=== PATIENT | male | born 1945 | race Caucasian/White ===

== ENCOUNTER 2018-08-24 14:24 | Day surgery (SDC) | payer MEDICARE, OTHER ==
[~2018-08-24] VITALS: Ht 182.9 cm; Wt 89.7 kg
[2018-08-24] MEDS ORDERED: ULTRAM 50MG TAB50 MG PO (15:16)
[2018-08-24] MEDS ORDERED: PRINIVIL20 MG PO (15:19)
[2018-08-24] MEDS ORDERED: ZOCOR 40MG40 MG PO (15:20)
[2018-08-24 15:21] VITALS: BP 135/75; PULSE 75; TEMP 97.7
[2018-08-24] MEDS ORDERED: ASPIRIN 81M81 MG/TA2 PO (15:21)
[2018-08-24] MEDS ORDERED: TYLENOL 500MG500 MG PO (15:21)
--- NOTE | 2018-08-24 15:21 | NUR ---
TO RM AT 1440- CALL LIGHT IN REACH DAUGHTER AT BEDSIDE.
[2018-08-24] MEDS ORDERED: MULTI VITAMINS1 TAB PO (15:22)
--- NOTE | 2018-08-24 18:10 | NUR ---
RECEIVED PT FROM ENDO. PT ALERT AND ORIENTED. USING RESTROOM.
[2018-08-24 18:15] VITALS: BP 129/57; PULSE 68; TEMP 97.7
[2018-08-24 18:32] VITALS: BP 121/66; PULSE 72
--- NOTE | 2018-08-24 19:34 | NUR ---
PT IN BED EATING CLEAR LIQUIDS. HAND OFF REPORT GIVEN TO KIKO LEWIS
--- NOTE | 2018-08-24 22:55 | NUR ---
Pt. has met discharge criteria. Pt. remains stable. Pt. given discharge instructions, and education. Pt. voices understanding. INT removed from rt. AC. Pt. dressed and escorted out by wheel chair with IJEOMA Augustin.
== END 2018-08-24 22:57 | disposition home or self-care (01) ==
LOC: SDCO 14:24 → MEDICAL 18:09 → SDCO 22:57
DX: K80.50 Calculus of bile duct without cholangitis or cholecystitis without obstruction (principal); K31.9 Disease of stomach and duodenum, unspecified; K21.9 Gastro-esophageal reflux disease without esophagitis; I11.9 Hypertensive heart disease without heart failure; E78.00 Pure hypercholesterolemia, unspecified; Z95.1 Presence of aortocoronary bypass graft; I25.10 Atherosclerotic heart disease of native coronary artery without angina pectoris; N20.0 Calculus of kidney; Z90.49 Acquired absence of other specified parts of digestive tract
CPT/HCPCS: OP; C1769; C2625; J1610; J2704; J7120; Q9967

== ENCOUNTER 2018-09-22 13:40 | Day surgery (SDC) | payer MEDICARE, OTHER ==
[~2018-09-22] VITALS: Ht 182.9 cm; Wt 82.6 kg
[~2018-09-22 13:40] MED LIST: ASPIRIN 81M81 MG/TA2 PO; MULTI VITAMINS1 TAB PO; PRINIVIL20 MG PO; TYLENOL 500MG500 MG PO; ULTRAM 50MG TAB50 MG PO; ZOCOR 40MG40 MG PO
[2018-09-22 13:57] VITALS: BP 124/70; PULSE 86; TEMP 97.7
[2018-09-22 14:55] VITALS: BP 128/76; PULSE 68; TEMP 97.7
[2018-09-22 15:10] VITALS: BP 132/82; PULSE 68; TEMP 98
--- NOTE | 2018-09-22 15:21 | NUR ---
PATIENT ARRIVES TO BAY FROM OR VIA CART. VS STARTED. ALERT AND ORIENTED X 4. STEADY GAIT. RESPIRATIONS EVEN AND UNLABORED. HEART RATE NSR. BOWEL SOUNDS AUDIBLE. DAUGHTER AT BEDSIDE. CALL LIGHT WITHIN REACH. WILL CONTINUE TO MONITOR.
[2018-09-22 15:25] VITALS: BP 126/72; PULSE 70
--- NOTE | 2018-09-22 15:35 | NUR ---
PHYSICIAN AT BEDSIDE. VS REMAIN STABLE. DENIES NAUSEA OR PAIN. ATE MUFFIN, JELLO, CRACKERS AND DRANK SPRITE. CALL LIGHT IN REACH.
--- NOTE | 2018-09-22 16:05 | NUR ---
PATIENT DISCHARGE INSTRUCTIONS GIVEN TO PATEINT AND HIS DAUGHTER. VS REMAIN STABLE. DENIES QUESTIONS, PAIN OR NAUSEA.WHEELCHAIR ASSISTANCE TO PERSONAL VEHICHLE.
[2018-09-22 16:15] VITALS: BP 135/80; PULSE 72; TEMP 97.9
== END 2018-09-22 16:05 | disposition home or self-care (01) ==
LOC: SDCO 13:40
DX: K31.9 Disease of stomach and duodenum, unspecified (principal); K83.8 Other specified diseases of biliary tract; Z79.899 Other long term (current) drug therapy; Z79.82 Long term (current) use of aspirin; Z95.1 Presence of aortocoronary bypass graft; Z90.49 Acquired absence of other specified parts of digestive tract; K21.9 Gastro-esophageal reflux disease without esophagitis; I51.9 Heart disease, unspecified
CPT/HCPCS: C1769; J2405; J2704; J3010; J7030